=== PATIENT | female | born 1995 | race African-American/Black ===

== ENCOUNTER 2019-07-09 17:40 | Emergency (ER) | payer SELFPAY ==
[~2019-07-09] VITALS: Ht 175.3 cm; Wt 81.8 kg
--- NOTE | 2019-07-09 18:59 | REP ---
LEFT KNEE, FOUR VIEWS: Four views of the left knee are performed. There is no acute fracture or dislocation. There is a small joint effusion. The joint spaces are unremarkable. Electronically Signed by Yasir Hutchinson MD 07/10/2019 11:42 P
[2019-07-09] MEDS ORDERED: IBUP-1022 PO (22:55)
[2019-07-09] MEDS ORDERED: SM 88TAB PO (22:55)
[2019-07-09 23:00] VITALS: BP 123/75
[2019-07-09] MEDS ORDERED: IBUPROFEN 600 MG TAB PO ONE (23:00)
== END 2019-07-09 23:03 | disposition home or self-care (01) ==
LOC: M ED 17:40
DX: S89.92XA Unspecified injury of left lower leg, initial encounter (principal); M25.461 Effusion, right knee; W10.9XXA Fall (on) (from) unspecified stairs and steps, initial encounter; Y92.099 Unspecified place in other non-institutional residence as the place of occurrence of the external cause; Y93.9 Activity, unspecified; Y99.9 Unspecified external cause status; Z72.0 Tobacco use